=== PATIENT | male | born 1980 | race Asian ===

== ENCOUNTER 2020-08-09 12:29 | Emergency (ER) | payer MEDICAID ==
[~2020-08-09] VITALS: Ht 167.6 cm; Wt 78.2 kg
[~2020-08-09 12:29] MED LIST: IBUP-1574 PO; NO HOME MEDS
[2020-08-09 13:00] VITALS: BP 145/109
[2020-08-09] MEDS ORDERED: HYDROcodone/acetaminophen 10/325mg tab PO ONE (13:45)
[2020-08-09] MEDS ORDERED: NAPR-56 PO (14:14)
[2020-08-09] MEDS ORDERED: HYDR-3965 PO (14:14)
== END 2020-08-09 15:17 | disposition home or self-care (01) ==
LOC: ER 12:29
DX: S93.491A Sprain of other ligament of right ankle, initial encounter (principal); Z87.891 Personal history of nicotine dependence; Z91.013 Allergy to seafood; Z79.899 Other long term (current) drug therapy; W22.8XXA Striking against or struck by other objects, initial encounter; Y93.89 Activity, other specified; Y92.89 Other specified places as the place of occurrence of the external cause; Y99.8 Other external cause status
CPT/HCPCS: 29125; 29515; 73610; 99283